=== PATIENT | female | born 1960 | race Caucasian/White ===

== ENCOUNTER → 2025-03-04 11:30 | Outpatient (BNV) | payer MEDICARE, MEDICAID, SELFPAY | PROVIDERS: Visit Provider Psychiatry & Neurology Psychiatry | DX: F33.2 Major depressive disorder, recurrent severe without psychotic features (principal); F41.1 Generalized anxiety disorder; R41.840 Attention and concentration deficit | CPT/HCPCS: 90792 ==

== ENCOUNTER 2025-03-08 07:37 | Outpatient (REF) | payer MEDICARE, MEDICAID, SELFPAY ==
--- NOTE | 2025-03-08 07:46 | ECG_ITS ---
Test Reason : R/O QTC PROLONGATION Blood Pressure : */* mmHG Vent. Rate : 82 BPM Atrial Rate : 82 BPM P-R Int : 166 ms QRS Dur : 84 ms QT Int : 422 ms P-R-T Axes : 38 24 38 degrees QTcB Int : 493 ms Normal sinus rhythm Prolonged QT Abnormal ECG No previous ECGs available Referred By: Mary Jo Madden Electronically Signed By: PAT BAIRD MD
[2025-03-08 08:10] LABS: MANUAL DIFF FLAG NO
[2025-03-08 08:16] LABS: Hematocrit 48.5 % (37.0-47.0); Hemoglobin 16.5 g/dl (12.0-16.0); Imm Gran Abs Auto 0.02 X10*3/uL (0.00-0.03); Imm Gran Pct Auto 0.4 % (0.0-0.4); Lymphocytes Absolute Auto 1.4 X10*3/uL (1.2-4.9); Mean Corpuscular HGB Conc 34.0 g/dl (31.0-35.0); Mean Corpuscular Hemoglobin 29.9 pg (27.0-33.0); Mean Corpuscular Volume 88.0 fL (80.0-98.0); NRBC Abs Auto 0.000 X10*3/uL (0.0-0.012); NRBC Pct Auto 0.0 /100WBC (0.0-0.2); Platelet Count 219 X10*3/uL (160-400); Red Blood Count 5.51 X10*6/uL (4.20-5.50); White Blood Count 5.4 X10*3/uL (4.8-10.8)
[2025-03-08 08:31] LABS: Hemoglobin A1C 217.2388 umol/L; Total Hemoglobin (HGBA1C) 4287.5473 umol/L
[2025-03-08 08:45] LABS: Parathyroid Hormone Intact 109.1 pg/mL (8.7-77.1)
[2025-03-08 08:53] LABS: Alanine Aminotransferase 85 U/L (0-31); Albumin Level 4.3 g/dL (3.5-5.0); Alkaline Phosphatase 61 U/L (39-117); Anion Gap 12 (12-20); Aspartate Amino Transferase 64 U/L (5-31); Blood Urea Nitrogen 17 mg/dL (9-16); Calcium 9.3 mg/dL (8.4-10.2); Carbon Dioxide 30 mmol/L (22-29); Chloride 103 mmol/L (96-108); Cholesterol 127 mg/dL (<200); Estimated Glomerular Filt Rate 55; HDL Cholesterol 41 mg/dL (>40); Iron 83 mcg/dL (30-160); Magnesium 2.1 mg/dL (1.6-2.6); Percent Iron Saturation 30 % (15-50); Potassium 3.1 mmol/L (3.3-5.1); Sodium 142 mmol/L (135-145); Total Iron Binding Capacity 280 mcg/dL (228-428); Total Protein 7.2 g/dL (6.5-8.0); Triglycerides 109 mg/dL (<150); Unsaturated Iron Binding 197 ug/dL
[2025-03-08 09:08] LABS: Free T4 (Free Thyroxine) 0.99 ng/dL (0.71-1.85); Thyroid Stimulating Hormone 1.96 uIU/mL (0.32-4.0)
[2025-03-08 09:23] LABS: Folate 7.9 ng/mL (> or = 4.0); Vitamin B12 471 pg/mL (200-900)
== END 2025-03-08 07:38 | disposition home or self-care (01) ==
LOC: HO.LAB 07:37
PROVIDERS: Visit Provider Psychiatry & Neurology Psychiatry
DX: F33.2 Major depressive disorder, recurrent severe without psychotic features (principal); F41.1 Generalized anxiety disorder
CPT/HCPCS: 36415; 80053; 80061; 82306; 82607; 82746; 83036; 83090; 83540; 83735; 83970; 84100; 84425; 84439; 84443; 85025; 85652; 86140; 93005

== ENCOUNTER → 2025-03-08 07:46 | Outpatient (BNV) | payer MEDICARE, MEDICAID, SELFPAY | PROVIDERS: Visit Provider Internal Medicine Cardiovascular Disease | DX: R94.31 Abnormal electrocardiogram [ECG] [EKG] (principal); Z13.6 Encounter for screening for cardiovascular disorders | CPT/HCPCS: 93010 ==

== ENCOUNTER 2025-03-18 12:00 | Outpatient (RCR) | payer MEDICARE, MEDICAID, SELFPAY ==
[2025-03-04 10:57] VITALS: BMI 37.7
--- NOTE | 2025-03-04 11:44 | PC.ADMIT ---
Patient is a 64 year old female who was referred to [facility] by her therapist d/t sxs of depression with passive SI and anxiety. 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 Patient stated she recently had a CT scan which showed something on her pancreas. She stated she has a f/u MRI in April. She reports she sees an oncologist twice a year for f/u appointments. Patient reports she retired from work 5 years ago d/t memory issues. Patient reports she was hospitalized 5 years ago and received ECT treatments. She reports she was not able to go back to work d/t memory issues. Patient is alert and oriented x4. She presents with depressed mood and affect. She reports passive SI, denied any plan or intent to harm herself. She reports she could never do that to her family. Patient reports she feels lonely and is struggling with her marriage. She reports she has been together with her for thirty years. She denied any substance issues.
[2025-03-04 11:45] VITALS: BP 120/82; PULSE 96; TEMP 36.7
--- NOTE | 2025-03-04 18:07 | HO.PS.ADMBH ---
HPI Date of Service: 03/04/25 Chief Complaint: MDD Sources of Information: patient interviewed, chart reviewed and crisis/core team assessment reviewed HPI Narrative: This is a 64-year-old female, breast cancer survivor with history of anxiety, depression, NIDDM, HTN, who was referred to [facility] by her outpatient therapist. ?Terribly depressed, miserable and sad. This has been going back for at least 5 years, but more recently in the last 3 or 4 months it has been getting worse?. Reports she had been psychiatrically hospitalized at the time and received ECT. She reports experiencing significant cognitive impairment due to treatments, which she feels she has not fully recovered from and in fact feels she has not returned to her baseline cognition (prior to ECT). Recent precipitant is losing access to a peer support who had been helping her for the previous 6 months, keeping her company in helping her with chores, running errands and other daily tasks. ?I had somebody helping me because I have a hard time starting tasks and completing tasks... She was like a peer support however the [employer] insurance stopped covering her and she had to return to school . She lives at home with her whom she notes is a very busy and active person and who is not always sympathetic to her struggles. She has 3 adult children youngest of which has been living with them for awhile following a break-up. 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 She has outpatient therapist and psychiatrist from she has been working with for the past 3 years into have been good supports. Aside from mental health struggles, she also has chronic lymphedema of her left upper extremity which she feels limits her on a daily basis. Denies any SI, HI, AH, VH. No history suggestive of hypomania/donnell or psychosis. No substance use issues. Main stressors related to marriage dysfunction drives me anything crazy he is a recovered alcoholic, works all the time, is a remodeled [employer], wood worker... He just expects more from me , also complains of occupational/daily functional impairment and executive dysfunction. Past Psychiatric History: IPLOC: none PHP x1: 5 yrs ago Denies respite, detox or rehab admissions SA: denies SIB: denies Aggression/ASB: none Legal hx: denies Therapist: Samira Sutherland at [facility] Psychiatrist: Dr. Valdez PCP: Faby Williamson Previous medication trials: Previous ECT (during IPLOC) - AE: persistent cognitive impairment CURRENT MEDICATIONS: Pristiq 50 mg daily Propranolol 20 mg t.i.d. Gabapentin 400/400/600 mg Mirtazapine 45 mg daily at bedtime Lorazepam 1 mg BID (upon waking and 9am) Trazodone 150 mg daily at bedtime Hydrochlorothiazide 25 mg daily amlodipine 5 mg daily Potassium chloride 20 mEq daily Jardiance 25 mg daily Rosuvastatin 5 mg daily Trulicity 3 mg subcu Q weekly Vitamin D3 [facility] Medical History (Updated 03/06/25 @ 18:50 by Mary Jo Madden MD) Arthritis Acquired lymphedema Breast CA Type II diabetes mellitus Hyperlipidemia HTN (hypertension) Narrative: Right-hand dominant NIDDM Hypertension Hyperlipidemia Chronic lymphoedema of LUE (secondary to lymphadenectomy related to breast cancer treatment) SH: Lumpectomy (breast) lymphadenectomy (axilla/LUE) Seizures: denies (except ect) Concussion/TBI: denies - postmenopausal Height: 5'2 Weight: 206 lbs ALL: Compazine, codeine, sulfa drugs Surgical History (Updated 03/04/25 @ 10:55 by Karina Coombs RN) H/O left mastectomy History of removal of both ovaries Narrative: uterus intact Family History: Reports problematic drinkin , alcohol use in father (but functioned, no major issues) sister with depression and anxiety, Denies family suicides Social History: x 34 yrs, has 3 adult children (29 yo twin sons, 27 yo son) Lives at home with and 27-year-old son is currently staying with them, whenever 29-year-old sons is in medical school in [place] She is close with her 87-year-old mother and her 2 sisters and brother, she is the oldest of 4 siblings Graduated high school in 1979 Graduated college from [employer] in 1983 Was a an art major, 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 Substance History: Denies Trauma History: cites marital issues ( is a recovered alcoholic), but denies any p/s/e abuse or neglect Diagnostics Vital Signs (24Hr): Vital Signs - 24 hr 03/04/25 11:45 Temperature 98.0 F Pulse Rate 96 Blood Pressure 120/82 BMI result Body Mass Index 37.7 Meds/Allergies Meds Home Medications ?Medication ?Instructions ?Recorded ?Confirmed ?Type amlodipine 5 mg tablet 5 mg PO DAILY 03/04/25 03/04/25 History cholecalciferol (vitamin D3) 50 50 mcg PO DAILY 03/04/25 03/04/25 History mcg (2,000 unit) tablet desvenlafaxine succinate 50 mg 50 mg PO DAILY 03/04/25 03/04/25 History tablet,extended release 24 hr dulaglutide 3 mg/0.5 mL 3 mg subcut QWEEK 03/04/25 03/04/25 History subcutaneous pen injector (Trulicity) empagliflozin 25 mg tablet 25 mg PO DAILY 03/04/25 03/04/25 History (Jardiance) gabapentin 400 mg capsule 400 mg PO BID 03/04/25 03/04/25 History gabapentin 600 mg tablet 600 mg PO BEDTIME 03/04/25 03/04/25 History hydrochlorothiazide 25 mg tablet 25 mg PO DAILY 03/04/25 03/04/25 History lorazepam 0.5 mg tablet 0.5 mg PO BEDTIME 03/04/25 03/04/25 History lorazepam 1 mg tablet See Rx Instructions .Route .COMPLEX 03/04/25 03/04/25 History mirtazapine 45 mg tablet 45 mg PO BEDTIME 03/04/25 03/04/25 History potassium chloride 20 mEq 20 meq PO DAILY 03/04/25 03/04/25 History tablet,extended release(part/cryst) propranolol 20 mg tablet 20 mg PO TID 03/04/25 03/04/25 History pyridoxine (vitamin B6) 100 mg 100 mg PO DAILY 03/04/25 03/04/25 History tablet rosuvastatin 5 mg tablet 5 mg PO DAILY 03/04/25 03/04/25 History trazodone 150 mg tablet 150 mg PO BEDTIME 03/04/25 03/04/25 History Allergies Allergies Allergy/AdvReac Type Severity Reaction Status Date / Time codeine Allergy Unknown Verified 03/04/25 10:56 prochlorperazine (From Allergy EPS. Verified 03/04/25 10:56 Compazine) Sulfa (Sulfonamide Allergy Unknown Verified 03/04/25 10:56 Antibiotics) Mental Status Exam Mental Status Exam Narrative: Alert, oriented, in no acute distress. Calm, cooperative, engaged. No psychomotor agitation or neurovegetative retardation. Eye contact maintained. Mood depressed, affect anxious, dysphoric, moments of tearfulness. Speech normal. Thought process scattered, linear, coherent. Thought content related to stressors, executive dysfunction, feeling overwhelmed, some transient helplessness and hopelessness, denies SI, intention or plan. Denies any aggressive ideation. No paranoia or delusional content elicited. No evidence of psychosis. Insight and judgment fair but adequate. Assessment & Plan Assessment & Plan (1) MDD (major depressive disorder), recurrent severe, without psychosis: Status: Acute Code(s): F33.2 - Major depressive disorder, recurrent severe without psychotic features (2) DEX (generalized anxiety disorder): Status: Acute Code(s): F41.1 - Generalized anxiety disorder (3) Cognitive attention deficit: Status: Acute Code(s): R41.840 - Attention and concentration deficit Assessment and Plan: Developmental hx suggestive of possible ADD struggles and likely exacerbated by ECT. Unclear if there have been other contributions to further cognitive declines (menopause, medical hx/CA treatment, etc) May placed Sade by smashing claudia Plan Admit to [facility] VS reviewed: afebrile, BP 120/80;?96 bpm continue regular medications for now Routine lab work as indicated EKG, routine for baseline QTc for medication considerations, lab slip given will check Mtb. a1c UDS as indicated [facility] reviewed Obtain ASRS, Mo[facility] next week Continue to monitor as per protocol Patient educated on: diagnosis and medication risk/benefits Informed Consent: understands Reason for continued partial hosp. stay Substantial Risk for: inability to function and med/psych decompensation Certification I certify that partial hospital treatment is medically necessary due to the symptoms and problems resulting from the patient's mental illness and the failure to treat the patient at the partial hospital level of care would likely result in the patient requiring inpatient psychiatric care which could not be prevented at a less intensive level of care. Time Spent With Patient Time: Total time managing care of this patient today __90__ minutes.
--- NOTE | 2025-03-08 13:42 | PC.NURSE ---
Reviewed with Dr. Madden lab and EKG results including K+3.1, Co2 30, Creat 1.02, egfr 55, FBS 149, AST 64, ALT 85, CRP 0.56, A1C 6.8, RBC 5.51, HGB 16.5, HCT 48.5, MPV 9.1, EOS PCT auto 5.4. EKG NSR, Prolonged QT, QT 422, QTC 493.
--- NOTE | 2025-03-10 12:54 | P.PNPSP_ITS ---
Subjective Subjective Date of Service: 03/10/25 Reason For Visit: MDD Mental Status Exam Mental Status Exam Narrative: Alert, oriented, in no acute distress. Calm, cooperative. Mood anxious, affect anxious. Speech normal. Thought process linear, coherent, more goal-directed. Thought content related to stressors, namely cognitive complaints, some future- orientation, denies any helplessness, hopelessness or SI.? No aggressive ideation or HI. No paranoia or delusional content elicited. No evidence of psychosis. Insight and judgment fair-good. Diagnostics Vital Signs (24Hr): BMI result Body Mass Index 37.7 Assessment & Plan Assessment & Plan (1) MDD (major depressive disorder), recurrent severe, without psychosis: Status: Acute Code(s): F33.2 - Major depressive disorder, recurrent severe without psychotic features (2) DEX (generalized anxiety disorder): Status: Acute Code(s): F41.1 - Generalized anxiety disorder (3) Cognitive attention deficit: Status: Acute Code(s): R41.840 - Attention and concentration deficit Assessment and Plan: Developmental hx suggestive of possible ADD struggles and likely exacerbated by ECT. Unclear if there have been other contributions to further cognitive declines (menopause, medical hx/CA treatment, etc) May placed Sade by smashing pumpkins Plan continue PHP start modafinil 50-100 mg qam continue desvenlafaxine 50 mg qd continue regular medications for now Routine lab work as indicated EKG, routine for baseline QTc for medication considerations, lab slip given will check Mtb. a1c UDS as indicated VS reviewed: afebrile, BP 120/80;?96 bpm Continue to monitor as per protocol Patient educated on: diagnosis and medication risk/benefits Informed Consent: understands Certification I certify that partial hospital treatment is medically necessary due to the symptoms and problems resulting from the patient's mental illness and the failure to treat the patient at the partial hospital level of care would likely result in the patient requiring inpatient psychiatric care which could not be prevented at a less intensive level of care. Total time managing care of this patient today ____ minutes. Discharge Plan Discharge Attending provider: Mary Jo Madden Medications: New modafinil 100 mg tablet 100 mg PO QAM Qty: 30 0RF cholecalciferol (vitamin D3) [Vitamin D3] 125 mcg (5,000 unit) tablet 125 mcg PO DAILY Qty: 30 0RF mirtazapine 30 mg tablet 30 mg PO BEDTIME Qty: 30 0RF trazodone 50 mg tablet 50 - 100 mg PO BEDTIME PRN (Reason: sleep) Qty: 60 0RF guanfacine 1 mg tablet extended release 24 hr 1 mg PO QAM Qty: 30 0RF Continued gabapentin 600 mg tablet 600 mg PO BEDTIME amlodipine 5 mg tablet 5 mg PO DAILY desvenlafaxine succinate 50 mg tablet extended release 24 hr 50 mg PO DAILY lorazepam 0.5 mg tablet 0.5 mg PO BEDTIME hydrochlorothiazide 25 mg tablet 25 mg PO DAILY lorazepam 1 mg tablet See Rx Instructions .ROUTE .COMPLEX Rx Instructions: TAKE 1 TABLET BY MOUTH UPON AWAKENING AND THEN TAKE 1 TABLET BY MOUTH AT 9 A.M. THIS IS A DOSE INCREASE OF 09/14/24, TOTAL DAILY DOSE IS 2. Jardiance 25 mg tablet 25 mg PO DAILY potassium chloride 20 mEq tablet,ER particles/crystals 20 meq PO DAILY rosuvastatin 5 mg tablet 5 mg PO DAILY cholecalciferol (vitamin D3) 50 mcg (2,000 unit) tablet 50 mcg PO DAILY Trulicity 3 mg/0.5 mL pen injector 3 mg SUBCUT QWEEK Rx Instructions: Weekly propranolol 20 mg tablet 20 mg PO TID Discontinued trazodone 150 mg tablet 150 mg PO BEDTIME mirtazapine 45 mg tablet 45 mg PO BEDTIME No Action gabapentin 400 mg capsule 400 mg PO BID Rx Instructions: TAKE ONE CAPSULE BY MOUTH TWICE A DAY IN THE MORNING AND AFTERNOON. pyridoxine (vitamin B6) 100 mg tablet 100 mg PO DAILY Stand Alone Forms: Patient Portal Discharge page Print Language: Sami
--- NOTE | 2025-03-10 14:22 | HO.PHP ---
This case was opened and reviewed on treatment teams.
--- NOTE | 2025-03-18 14:02 | HO.PHPPROGNO ---
Subjective Subjective Date of Service: 03/18/25 Reason For Visit: MDD Interim History: Patient seen for follow-up, anticipating discharge at the end of program today.? Reports no acute issues or concerns. Medication compliant, medications well-tolerated. Denies any adverse effects.? Mood is stable.? Denies any hopelessness or SI. Denies thoughts of harming self or others at this time. Denies any aggressive ideation or HI. Denies any paranoia or AH or VH. Sleep, appetite, energy stable. Mental Status Exam Mental Status Exam Narrative: Alert, oriented, in no acute distress. Calm, cooperative. Mood anxious, affect anxious. Speech normal. Thought process linear, coherent, more goal-directed. Thought content related to stressors, namely cognitive complaints, some future-orientation, denies any helplessness, hopelessness or SI.? No aggressive ideation or HI. No paranoia or delusional content elicited. No evidence of psychosis. Insight and judgment fair-good. Diagnostics Vital Signs (24Hr): BMI result Body Mass Index 37.7 Assessment & Plan Assessment & Plan (1) MDD (major depressive disorder), recurrent severe, without psychosis: Status: Acute Code(s): F33.2 - Major depressive disorder, recurrent severe without psychotic features (2) DEX (generalized anxiety disorder): Status: Acute Code(s): F41.1 - Generalized anxiety disorder (3) Cognitive attention deficit: Status: Acute Code(s): R41.840 - Attention and concentration deficit Assessment and Plan: Developmental hx suggestive of possible ADD struggles and likely exacerbated by ECT. Unclear if there have been other contributions to further cognitive declines (menopause, medical hx/CA treatment, etc) May placed Sade by smashing pumpkins Plan [facility]charge from [facility] Continue regular medications Refills sent to pharmacy Will defer further medication management to outpatient provider *Safety plan reviewed *Discharge diagnoses, treatment course, discharge plan have been reviewed with patient (including medication regime, medication management, potential side effects) as well as treatment rationale were also revisited *Discharge paperwork signed and given to patient, copy sent for scanning to chart Patient educated on: diagnosis and medication risk/benefits Informed Consent: understands Reason for contiued partial hosp. stay Substantial Risk for: stable for discharge Certification I certify that partial hospital treatment is medically necessary due to the symptoms and problems resulting from the patient's mental illness and the failure to treat the patient at the partial hospital level of care would likely result in the patient requiring inpatient psychiatric care which could not be prevented at a less intensive level of care. Total time managing care of this patient today __30__ minutes. Discharge Plan Discharge Attending provider: Mary Jo Madden Medications: New modafinil 100 mg tablet 100 mg PO QAM Qty: 30 0RF cholecalciferol (vitamin D3) [Vitamin D3] 125 mcg (5,000 unit) tablet 125 mcg PO DAILY Qty: 30 0RF mirtazapine 30 mg tablet 30 mg PO BEDTIME Qty: 30 0RF trazodone 50 mg tablet 50 - 100 mg PO BEDTIME PRN (Reason: sleep) Qty: 60 0RF guanfacine 1 mg tablet extended release 24 hr 1 mg PO QAM Qty: 30 0RF Continued gabapentin 600 mg tablet 600 mg PO BEDTIME amlodipine 5 mg tablet 5 mg PO DAILY desvenlafaxine succinate 50 mg tablet extended release 24 hr 50 mg PO DAILY lorazepam 0.5 mg tablet 0.5 mg PO BEDTIME hydrochlorothiazide 25 mg tablet 25 mg PO DAILY lorazepam 1 mg tablet See Rx Instructions .ROUTE .COMPLEX Rx Instructions: TAKE 1 TABLET BY MOUTH UPON AWAKENING AND THEN TAKE 1 TABLET BY MOUTH AT 9 A.M. THIS IS A DOSE INCREASE OF 09/14/24, TOTAL DAILY DOSE IS 2. Jardiance 25 mg tablet 25 mg PO DAILY potassium chloride 20 mEq tablet,ER particles/crystals 20 meq PO DAILY rosuvastatin 5 mg tablet 5 mg PO DAILY cholecalciferol (vitamin D3) 50 mcg (2,000 unit) tablet 50 mcg PO DAILY Trulicity 3 mg/0.5 mL pen injector 3 mg SUBCUT QWEEK Rx Instructions: Weekly propranolol 20 mg tablet 20 mg PO TID Discontinued trazodone 150 mg tablet 150 mg PO BEDTIME mirtazapine 45 mg tablet 45 mg PO BEDTIME No Action gabapentin 400 mg capsule 400 mg PO BID Rx Instructions: TAKE ONE CAPSULE BY MOUTH TWICE A DAY IN THE MORNING AND AFTERNOON. pyridoxine (vitamin B6) 100 mg tablet 100 mg PO DAILY Stand Alone Forms: Patient Portal Discharge page Print Language: Salvadorean
== END 2025-03-18 23:59 | disposition home or self-care (01) ==
LOC: HO.PHPA 12:00
PROVIDERS: Visit Provider Psychiatry & Neurology Psychiatry
DX: F33.2 Major depressive disorder, recurrent severe without psychotic features (principal); F41.1 Generalized anxiety disorder; R41.840 Attention and concentration deficit; Z79.899 Other long term (current) drug therapy
CPT/HCPCS: 90791; 90853

== ENCOUNTER → 2025-04-07 12:39 | Outpatient (REF) | payer MEDICARE, MEDICAID, SELFPAY ==
--- NOTE | 2025-04-07 | ECG_ITS ---
Test Reason : QT PROLONGATION Blood Pressure : */* mmHG Vent. Rate : 77 BPM Atrial Rate : 77 BPM P-R Int : 170 ms QRS Dur : 84 ms QT Int : 420 ms P-R-T Axes : 34 12 38 degrees QTcB Int : 475 ms Normal sinus rhythm Normal ECG When compared with ECG of 08-Mar-2025 07:54, No significant change was found Referred By: Mary Jo Madden Electronically Signed By: PAT BAIRD MD
--- OUTSIDE RECORDS SUMMARY | 2025-04-07 12:53 | XMS_ITS | Encounter Summary ---
Author Organization [facility] Address [address] [place] [address] [place] [id number] Phone Care Team Providers Care Electrical Research Engineer Name Role Phone Jenaro Watson MD Unavailable [phone] Ismael Sommers MD Unavailable Chandler Gutiérrez MD Unavailable [place]Coco tam DO Unavailable Leandro Cisneros MD Unavailable [phone] Evelyn Mims MD Unavailable [phone] Geni Zimmer MD Unavailable Katelynn Henderson AD TAKER Unavailable [phone] Anson Mckeon MD Primary Care Provider [phone] Evelyn Mims MD Unavailable Katelynn Henderson AD TAKER Primary Care Provider Katelynn Henderson AD TAKER Primary Care Provider Evelyn Mims MD Unavailable Encounter Details Date Type Department Care Team (Late st Contact Info) Description 04/25/2020 Telephone [facility] [address] [place], [place] [id number] Leandro Cisneros MD [address] [place] [address], [address] [place] [address] Social History Tobacco Use Types Packs/Day Years Used Date Smoking Tobacco: Never Smokeless Tobacco: Never Alcohol Use Standard Drinks/Week Comments Yes 0 (1 standard drink = 0.6 oz pur e alcohol) 3-4 drinks per month Comments No Sex and Gender Information Value Date Recorded Sex Assigned at Female 09/15/2017 9:30 AM EST Legal Sex Female 7:15 PM EST Gender Identity Female 09/15/2017 9:30 AM EST Sexual Orientation Straight 09/15/2017 9: 30 AM EST Occupation Industry Job Start Date Job End Date Working Not on file Not on file Not on file documented as of this encounter Functional Status documented as of this encounter Plan of Treatment Upcoming Encounters Date Type Department Care Team (Late st Contact Info) Description 11/03/2024 Procedure Pass [address] [address] 11/03/2024 Procedure Pass [address] [address] 04/27/2025 2:40 PM EDT Appointment [address] [address] Evelyn Mims MD [address] [place] [id number] 05/06/2025 2:15 PM EDT Appointment [address] [address] Evelyn Mims MD [address] [place] [email or web address] 05/13/2025 11:30 AM EDT Office Visit [facility] Center at [address] [address] Evelyn Mims MD [address] [place] [address] [place] [address] [email or web address] documented as of this encounter Visit Diagnoses Not on filedocumented in this encounter Additional Health Concerns Infection Onset Date Last Indicated Resolved Time CoV-Exposed Comment:Recent close contact documented in the COVID-19 PCR/PRO order 01/24/2021 01/24/2021 02/08/2021 1:23 AM E DT documented as of this encounter Care Teams Electrical Research Engineer Relationship Specialty Start Date End Date Anson Mckeon MD [address] [facility] [address] [place] [id number] [email or web address] PCP - General Family Medicine 02/28/20 04/16/21 Katelynn Henderson, AD TAKER [address] [place] [address] PCP - General Family Medicine 04/17/21 04/10/22 Katelynn Henderson, AD TAKER [address] [place] [address] PCP - General Family Medicine 04/11/22 Jenaro Watson MD [address] [place] [address] [email or web address] Historical LMR Provider 06/28/17 09/15/21 Ismael Sommers MD [address] [address] [email or web address] Historical LMR Provider 06/28/17 09/15/21 Chandler Gutiérrez MD [address] [address] Historical LMR Provider 06/28/17 2 Coco Pittman DO 30 [place] [address] Historical LMR Provider 06/28/17 2 Leandor Cisneros MD 22 [facility], [address] [place] [address] Historical LMR Provider 06/28/17 Evelyn Mims MD [address] [place] [address] Historical LMR Provider 06/28/17 10/17/20 Geni Zimmer MD [address] [place] [address] Historical LMR Provider 06/28/17 Katelynn Henderson NP [address] [place] [address] Family Medicine 04/12/19 Evelyn Mims MD 30 [place] [address] [email or web address] Primary Oncologist Medical Oncology 10/18/20 04/23/22 Evelyn Mims MD 30 [place] [address] Primary Oncologist Medical Oncology 10/18/20 documented as of this encounter Additional Source Comments The information contained in this document represents components of the legal health record. It is not the complete legal health record.[facility]
== END ==
LOC: HO.CARD 12:39
PROVIDERS: PCP Nurse Practitioner Family; Visit Provider Psychiatry & Neurology Psychiatry
DX: F33.2 Major depressive disorder, recurrent severe without psychotic features (principal)
CPT/HCPCS: 93005

== ENCOUNTER → 2025-04-07 12:51 | Outpatient (BNV) | payer MEDICARE, MEDICAID, SELFPAY | PROVIDERS: Visit Provider Internal Medicine Cardiovascular Disease | DX: Z13.6 Encounter for screening for cardiovascular disorders (principal) | CPT/HCPCS: 93010 ==

== ENCOUNTER → 2025-04-15 09:15 | Outpatient (BNV) | payer MEDICARE, MEDICAID, SELFPAY | PROVIDERS: Visit Provider Psychiatry & Neurology Psychiatry | DX: F33.2 Major depressive disorder, recurrent severe without psychotic features (principal); F41.1 Generalized anxiety disorder; R41.840 Attention and concentration deficit; R41.89 Other symptoms and signs involving cognitive functions and awareness | CPT/HCPCS: 99213; 99499 ==

== ENCOUNTER 2025-04-29 09:15 | Outpatient (RCR) | payer MEDICARE, MEDICAID, SELFPAY ==
[2025-04-06 10:47] VITALS: BP 120/78; PULSE 80; TEMP 36.9; BMI 37.6
--- NOTE | 2025-04-06 11:26 | PC.ADMIT ---
Patient is a 65 year old female who was recently discharged from [facility] and is attending [facility] level of care for depression and anxiety sxs. Patient reports marital strife as a stressor along with cognitive and stamina issues that keeps her from doing things. Patient is alert and oriented x4. She is calm and cooperative. She presents with depressed mood and anxious affect. She reports passive SI, patient stated, Just thoughts but not doing anything. I get tired of being so sad and being miserable every day and not feeling better. Denied any plans or intent to harm herself. She just wants to feel better mentally. Patient was given a copy of her safety plan if needed. Medications updated with patient and [facility] medication list. Patient reports taking medications as prescribed. Patient denied any substance issues.
--- NOTE | 2025-04-07 15:42 | HO.PHP ---
Client's case has been opened and reviewed in team
[2025-04-08 09:07] VITALS: BP 126/80; PULSE 88
--- NOTE | 2025-04-08 14:01 | HO.PS.ADMBH ---
HPI Date of Service: 04/07/25 Chief Complaint: MDD Sources of Information: patient interviewed, chart reviewed and crisis/core team assessment reviewed HPI Narrative: This is a 65-year-old female, breast cancer survivor with history of anxiety, depression, NIDDM, HTN, who just completed PHP and is stepping down to [facility]. Reports chronic depression for at least 5 years, but more recently in the last 4 months it has been getting worse. She reports experiencing significant cognitive impairment due to treatments, which she feels she has not fully recovered from and in fact feels she has not returned to her baseline cognition (prior to ECT). Recent precipitant is losing access to a peer support who had been helping her for the previous 6 months, keeping her company in helping her with chores, running errands and other daily tasks. ?I had somebody helping me because I have a hard time starting tasks and completing tasks... She was like a peer support however the my insurance stopped covering her and she had to return to school . She lives at home with her whom she notes is a very busy and active person and who is not always sympathetic to her struggles. She has 3 adult children youngest of which has been living with them for awhile following a break-up. He is a epstein and [place] and there is a ton of work to do maintaining the home and farm. She has outpatient therapist and psychiatrist from she has been working with for the past 3 years into have been good supports. Aside from mental health struggles, she also has chronic lymphedema of her left upper extremity which she feels limits her on a daily basis. Denies any SI, HI, AH, VH. No history suggestive of hypomania/donnell or psychosis. No substance use issues. Main stressors related to marriage dysfunction drives me anything crazy he is a recovered alcoholic, works all the time, is a remodeled her, wood worker... He just expects more from me , also complains of occupational/daily functional impairment and executive dysfunction. Past Psychiatric History: IPLOC: Reports she had been psychiatrically hospitalized at the time and received ECT. PHP x2: 02/2025 to [facility] and 5 yrs ago Denies respite, detox or rehab admissions SA: denies SIB: denies Aggression/ASB: none Legal hx: denies Therapist: Samira Sutherland at [facility] Psychiatrist: Dr. Valdez PCP: Faby Williamson Previous medication trials: Previous ECT (during IPLOC) - AE: persistent cognitive impairment CURRENT MEDICATIONS: Pristiq 50 mg daily Propranolol 20 mg t.i.d. Gabapentin 400/400/600 mg Mirtazapine 30 mg daily at bedtime Lorazepam 1 mg BID (upon waking and 9am) Trazodone 50-100 mg daily at bedtime Hydrochlorothiazide 25 mg daily amlodipine 5 mg daily Potassium chloride 20 mEq daily Jardiance 25 mg daily Rosuvastatin 5 mg daily Trulicity 3 mg subcu Q weekly Vitamin D3 [facility] Medical History (Updated 04/11/25 @ 03:34 by Mary Jo Madden MD) Statin-induced myositis Sleep apnea Pancreatic cyst Arthritis Acquired lymphedema Breast CA Type II diabetes mellitus Hyperlipidemia HTN (hypertension) Narrative: Right-hand dominant NIDDM Hypertension Hyperlipidemia Chronic lymphoedema of LUE (secondary to lymphadenectomy related to breast cancer treatment) SH: Lumpectomy (breast) lymphadenectomy (axilla/LUE) Seizures: denies (except ect) Concussion/TBI: denies - postmenopausal Height: 5'2 Weight: 206 lbs ALL: Compazine, codeine, sulfa drugs Surgical History (Updated 03/04/25 @ 10:55 by Karina Coombs RN) H/O left mastectomy History of removal of both ovaries Narrative: uterus intact Family History: Reports problematic drinkin , alcohol use in father (but functioned, no major issues) sister with depression and anxiety, Denies family suicides Social History: x 34 yrs, has 3 adult children (29 yo twin sons, 27 yo son) Lives at home with and 27-year-old son is currently staying with them, whenever 29-year-old sons is in medical school in [place] She is close with her 87-year-old mother and her 2 sisters and brother, she is the oldest of 4 siblings Graduated high school in 1979 Graduated college from [employer] in 1983 Was a an art major, 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 Substance History: Denies Trauma History: cites marital issues ( is a recovered alcoholic), but denies any p/s/e abuse or neglect Diagnostics Vital Signs (24Hr): BMI result Body Mass Index 37.6 Meds/Allergies Meds Home Medications ?Medication ?Instructions ?Recorded ?Confirmed ?Type amlodipine 5 mg tablet 5 mg PO DAILY 03/04/25 04/06/25 History desvenlafaxine succinate 50 mg 50 mg PO DAILY 03/04/25 04/06/25 History tablet,extended release 24 hr dulaglutide 3 mg/0.5 mL 3 mg subcut QWEEK 03/04/25 04/06/25 History subcutaneous pen injector (Trulicity) empagliflozin 25 mg tablet 25 mg PO DAILY 03/04/25 04/06/25 History (Jardiance) gabapentin 400 mg capsule 400 mg PO BID 03/04/25 04/06/25 History gabapentin 600 mg tablet 600 mg PO BEDTIME 03/04/25 04/06/25 History hydrochlorothiazide 25 mg tablet 25 mg PO DAILY 03/04/25 04/06/25 History lorazepam 0.5 mg tablet 0.5 mg PO BEDTIME 03/04/25 04/06/25 History potassium chloride 20 mEq 20 meq PO DAILY 03/04/25 04/06/25 History tablet,extended release(part/cryst) propranolol 20 mg tablet 20 mg PO TID 03/04/25 04/06/25 History pyridoxine (vitamin B6) 100 mg 100 mg PO DAILY 03/04/25 04/06/25 History tablet rosuvastatin 5 mg tablet 5 mg PO DAILY 03/04/25 04/06/25 History Allergies Allergies Allergy/AdvReac Type Severity Reaction Status Date / Time brexpiprazole (From Rexulti) Allergy Diarrhea, Verified 03/10/25 13:38 fatigue codeine Allergy Unknown Verified 03/04/25 10:56 metformin Allergy Low Verified 03/10/25 13:38 critically, increased anxiety. prochlorperazine (From Allergy EPS. Verified 03/04/25 10:56 Compazine) Sulfa (Sulfonamide Allergy Unknown Verified 03/04/25 10:56 Antibiotics) Mental Status Exam Mental Status Exam Narrative: Alert, oriented, in no acute distress. Calm, cooperative, engaged. No psychomotor agitation or neurovegetative retardation. Eye contact maintained. Mood depressed, affect anxious, dysphoric, moments of tearfulness. Speech normal. Thought process scattered, linear, coherent. Thought content related to stressors, executive dysfunction, feeling overwhelmed, some transient helplessness and hopelessness, denies SI, intention or plan. Denies any aggressive ideation. No paranoia or delusional content elicited. No evidence of psychosis. Insight and judgment fair but adequate. Assessment & Plan Assessment & Plan (1) MDD (major depressive disorder), recurrent severe, without psychosis: Status: Acute Code(s): F33.2 - Major depressive disorder, recurrent severe without psychotic features (2) DEX (generalized anxiety disorder): Status: Acute Code(s): F41.1 - Generalized anxiety disorder (3) Cognitive attention deficit: Status: Acute Code(s): R41.840 - Attention and concentration deficit Assessment and Plan: Developmental hx suggestive of possible ADD struggles and likely exacerbated by ECT. Unclear if there have been other contributions to further cognitive declines (menopause, medical hx/CA treatment, etc) May placed Sade by smashing claudia (4) Cognitive impairment: Status: Acute Code(s): R41.89 - Other symptoms and signs involving cognitive functions and awareness Plan Admit to IOP VS reviewed: afebrile, BP ;? bpm insurance did not authorize modafinil, will start MPH 2.5-5 mg qam continue regular medications for now Routine lab work as indicated EKG, routine for baseline QTc for medication considerations as indicated UDS as indicated MassPat reviewed Continue to monitor as per protocol I certify that the patient needs IOP Services for a minimum of 9 hours per week of therapeutic services. I certify the patient is experiencing symptoms of such intensity that they are unable to be safely treated in a less intensive setting and would otherwise require?admission to a more intensive level of care. Patient educated on: diagnosis and medication risk/benefits Informed Consent: understands Reason for continued partial hosp. stay Substantial Risk for: inability to function and med/psych decompensation Certification I certify that the patient needs IOP Services for a minimum of 9 hours per week of therapeutic services. I certify the patient is experiencing symptoms of such intensity that they are unable to be safely treated in a less intensive setting and would otherwise require?admission to a more intensive level of care. Time Spent With Patient Time: Total time managing care of this patient today _60___ minutes.
[2025-04-13 11:37] VITALS: BP 120/84; PULSE 80
--- NOTE | 2025-04-18 07:15 | P.EN_ITS ---
Event Note Date of Service: 04/15/25 Event Note: Returned call to patient who is having debilitating anxiety, I dont know what to do with myself... I'm losing my mind . PRN lorazepam is doing nothing . Has been emotionally falling apart and that was even before findings out her friend's Friday. Describes feeling functionally impaired. Anxiety lets up more toward evening, probably things are winding down and because there's less of her day left to plan for or anticipate. Feeling o verwhelmed, helpless, hopeless. Needing constant reassurance from staff and this medical writer. Complaints of being verbally abusive and unsupportive adds to her burden. Will start on risperidone 0.125 mg up to TID prn anxiety/agitation. Time Spent With Patient Time: Total time managing care of this patient today __20__ minutes.
--- NOTE | 2025-04-18 22:38 | HO.PHPPROGNO ---
Subjective Subjective Date of Service: 04/18/25 Reason For Visit: MDD Interim History: I feel anxious.. so horrible Patient struggling with self regulating. Has demanding and needy, requesting to be seen by provider on daily basis. Complains of crippling anxiety She took a risperidone when she woke this morning around 6am and another dose with her AM lorazepam between 8 and 9. She denies any issues with sedation when driving. It's 10:30 and feels her anxiety is getting worse. feeling at times shaky although admits she does not believes she has eaten anything substance today. She is unaware of where her blood sugars have been running because she forgets to take it. She does have a glucometer at home but says she does not use it and would need help with someone showing her. Medication Compliance: Intermittent Side effects from medications: No Attending Groups: Yes Review of Systems Acute medical concerns: No Mental Status Exam Mental Status Exam Narrative: Alert, oriented, in no acute distress. Calm, cooperative, engaged. No psychomotor agitation or neurovegetative retardation. Eye contact maintained. Mood depressed, affect anxious, dysphoric, moments of tearfulness. Speech normal. Thought process scattered, linear, coherent. Thought content related to stressors, executive dysfunction, feeling overwhelmed, some transient helplessness and hopelessness, denies SI, intention or plan. Denies any aggressive ideation. No paranoia or delusional content elicited. No evidence of psychosis. Insight and judgment fair but adequate. Diagnostics Vital Signs (24Hr): BMI result Body Mass Index 37.6 Assessment & Plan Assessment & Plan (1) MDD (major depressive disorder), recurrent severe, without psychosis: Status: Acute Code(s): F33.2 - Major depressive disorder, recurrent severe without psychotic features (2) DEX (generalized anxiety disorder): Status: Acute Code(s): F41.1 - Generalized anxiety disorder (3) Cognitive attention deficit: Status: Acute Code(s): R41.840 - Attention and concentration deficit Assessment and Plan: Developmental hx suggestive of possible ADD struggles and likely exacerbated by ECT. Unclear if there have been other contributions to further cognitive declines (menopause, medical hx/CA treatment, etc) May placed Sade by smashing pumpkins (4) Cognitive impairment: Status: Acute Code(s): R41.89 - Other symptoms and signs involving cognitive functions and awareness Plan continue IOP hold MPH 2.5-5 mg qam increase risperidone to 0.25 mg TID prn anxiety (encouraged to take more regularly) continue other regular medications will bring in her glucometer and review use tomorrow Routine lab work as indicated EKG, routine for baseline QTc for medication considerations as indicated UDS as indicated MassPat reviewed Continue to monitor I certify that the patient needs IOP Services for a minimum of 9 hours per week of therapeutic services. I certify the patient is experiencing symptoms of such intensity that they are unable to be safely treated in a less intensive setting and would otherwise require?admission to a more intensive level of care. Patient educated on: diagnosis and medication risk/benefits Informed Consent: understands Reason for contiued partial hosp. stay Substantial Risk for: inability to function and med/psych decompensation Certification I certify that the patient needs IOP Services for a minimum of 9 hours per week of therapeutic services. I certify the patient is experiencing symptoms of such intensity that they are unable to be safely treated in a less intensive setting and would otherwise require?admission to a more intensive level of care. Total time managing care of this patient today __30__ minutes. Discharge Plan Discharge Attending provider: Mary Jo Madden Medications: New thiamine HCl (vitamin B1) 100 mg capsule 100 mg PO DAILY Qty: 30 2RF pyridoxine (vitamin B6) [Vitamin B-6] 100 mg tablet 100 mg PO DAILY Qty: 30 0RF memantine [Namenda] 5 mg tablet 5 mg PO QPM 7 Days Qty: 14 0RF Continued gabapentin 600 mg tablet 600 mg PO BEDTIME gabapentin 400 mg capsule 400 mg PO BID Rx Instructions: TAKE ONE CAPSULE BY MOUTH TWICE A DAY IN THE MORNING AND AFTERNOON. amlodipine 5 mg tablet 5 mg PO DAILY desvenlafaxine succinate 50 mg tablet extended release 24 hr 50 mg PO DAILY lorazepam 0.5 mg tablet 0.5 mg PO BEDTIME hydrochlorothiazide 25 mg tablet 25 mg PO DAILY Jardiance 25 mg tablet 25 mg PO DAILY potassium chloride 20 mEq tablet,ER particles/crystals 20 meq PO DAILY pyridoxine (vitamin B6) 100 mg tablet 100 mg PO DAILY rosuvastatin 5 mg tablet 5 mg PO DAILY Trulicity 3 mg/0.5 mL pen injector 3 mg SUBCUT QWEEK Rx Instructions: Weekly propranolol 20 mg tablet 20 mg PO TID modafinil 100 mg tablet 100 mg PO QAM Qty: 30 0RF guanfacine 1 mg tablet extended release 24 hr 1 mg PO QAM Qty: 30 0RF mirtazapine 30 mg tablet 30 mg PO BEDTIME Qty: 30 0RF lorazepam 1 mg tablet See Rx Instructions .ROUTE .COMPLEX Qty: 60 0RF Rx Instructions: TAKE 1 TABLET BY MOUTH UPON AWAKENING AND THEN TAKE 1 TABLET BY MOUTH AT 9 A.M. THIS IS A DOSE INCREASE OF 09/14/24, TOTAL DAILY DOSE IS 2. cholecalciferol (vitamin D3) [Vitamin D3] 125 mcg (5,000 unit) tablet 125 mcg PO DAILY Qty: 30 0RF trazodone 50 mg tablet 50 - 100 mg PO BEDTIME PRN (Reason: sleep) Qty: 14 0RF Discontinued cholecalciferol (vitamin D3) 50 mcg (2,000 unit) tablet 50 mcg PO DAILY Stand Alone Forms: Patient Portal Discharge page Print Language: Hungarian
--- NOTE | 2025-04-19 23:28 | P.PNPSP_ITS ---
Subjective Subjective Date of Service: 04/19/25 Reason For Visit: MDD Interim History: As agreed patient had brought in glucometer and met with staff nurse to relearn how to use it. I spoke with her last night about an episode of feeling weird yesterday around 1pm, after taking one tablet at noon. She went to get herself lunch around 2pm, but says she still had to go home and rest and felt off for the remainder of the day. Symptoms suggestive of hypoglycemia, patient ate at a small breakfast of yogurt/granola at 6am and then did not eat again until she started feeling weird 7-8 hours later. She does not check her blood sugars and did not seem to be aware of whether she has had any previous hypoglycemia, or whether she would recognize this if she did experience hypoglycemia. She is still anxious about the medication causing these effects (even though she had been doing well with 1 tablet over the weekend. She only took 1/2 tablet this morning at 6am and another half at 9am). Anxiety still high, expresses feeling frustated but agreeable to staying at 1 tablet TID with meals (and taken split as 1/2 tablet and then other 1/2 tablet after one hour) to stagger for better tolerance and control. Medication Compliance: Yes Side effects from medications: Yes (possibly medication SE vs hypoglycemia) Attending Groups: Yes Review of Systems Acute medical concerns: Yes not well controlled DM, patient advised to get in the habot of checking blood sugars in AM or when ever feeling off which she was reluctant, but ultimately agreed to do Mental Status Exam Mental Status Exam Narrative: Alert, oriented, in no acute distress. Semi-cooperative, distractible. No psychomotor agitation or neurovegetative retardation. Eye contact maintained. Mood anxious, affect anxious, . Speech normal. Thought process scattered, linear, coherent. Thought content related to stressors, executive dysfunction, feeling overwhelmed, some transient helplessness and hopelessness, denies SI, intention or plan. Denies any aggressive ideation. No paranoia or delusional content elicited. No evidence of psychosis. Insight and judgment fair but adequate. Diagnostics Vital Signs (24Hr): BMI result Body Mass Index 37.6 Assessment & Plan Assessment & Plan (1) MDD (major depressive disorder), recurrent severe, without psychosis: Status: Acute Code(s): F33.2 - Major depressive disorder, recurrent severe without psychotic features (2) DEX (generalized anxiety disorder): Status: Acute Code(s): F41.1 - Generalized anxiety disorder (3) Cognitive attention deficit: Status: Acute Code(s): R41.840 - Attention and concentration deficit Assessment and Plan: Developmental hx suggestive of possible ADD struggles and likely exacerbated by ECT. Unclear if there have been other contributions to further cognitive declines (menopause, medical hx/CA treatment, etc) May placed Sade by smashing pumpkins (4) Cognitive impairment: Status: Acute Code(s): R41.89 - Other symptoms and signs involving cognitive functions and awareness Plan continue IOP continue risperidone 0.25 mg TID (split 0.125 mg w hour in between doses) with meals continue regular medications for now discotninued: [facility] (reports no tolerating) Routine lab work as indicated EKG, routine for baseline QTc for medication considerations as indicated UDS as indicated [facility] reviewed Continue to monitor as per protocol I certify that the patient needs IOP Services for a minimum of 9 hours per week of therapeutic services. I certify the patient is experiencing symptoms of such intensity that they are unable to be safely treated in a less intensive setting and would otherwise require?admission to a more intensive level of care. Patient educated on: diagnosis and medication risk/benefits Informed Consent: understands Reason for contiued partial hosp. stay Substantial Risk for: inability to function and med/psych decompensation Certification I certify that the patient needs IOP Services for a minimum of 9 hours per week of therapeutic services. I certify the patient is experiencing symptoms of such intensity that they are unable to be safely treated in a less intensive setting and would otherwise require?admission to a more intensive level of care. Total time managing care of this patient today __30__ minutes. Discharge Plan Discharge Attending provider: Mary Jo Madden Medications: New methylphenidate HCl 5 mg tablet 5 mg PO BID Qty: 20 0RF Rx Instructions: Partial Fill upon patient request. memantine 7 mg capsule,sprinkle,ER 24hr 7 mg PO DAILY Qty: 30 0RF thiamine HCl (vitamin B1) 100 mg capsule 100 mg PO DAILY Qty: 30 2RF pyridoxine (vitamin B6) [Vitamin B-6] 100 mg tablet 100 mg PO DAILY Qty: 30 0RF memantine [Namenda] 5 mg tablet 5 mg PO BID Qty: 30 0RF risperidone 0.25 mg tablet 0.25 mg PO TID Qty: 45 0RF Continued gabapentin 600 mg tablet 600 mg PO BEDTIME gabapentin 400 mg capsule 400 mg PO BID Rx Instructions: TAKE ONE CAPSULE BY MOUTH TWICE A DAY IN THE MORNING AND AFTERNOON. amlodipine 5 mg tablet 5 mg PO DAILY desvenlafaxine succinate 50 mg tablet extended release 24 hr 50 mg PO DAILY lorazepam 0.5 mg tablet 0.5 mg PO BEDTIME hydrochlorothiazide 25 mg tablet 25 mg PO DAILY Jardiance 25 mg tablet 25 mg PO DAILY potassium chloride 20 mEq tablet,ER particles/crystals 20 meq PO DAILY pyridoxine (vitamin B6) 100 mg tablet 100 mg PO DAILY rosuvastatin 5 mg tablet 5 mg PO DAILY Trulicity 3 mg/0.5 mL pen injector 3 mg SUBCUT QWEEK Rx Instructions: Weekly propranolol 20 mg tablet 20 mg PO TID trazodone 50 mg tablet 50 - 100 mg PO BEDTIME PRN (Reason: sleep) Qty: 60 0RF guanfacine 1 mg tablet extended release 24 hr 1 mg PO QAM Qty: 30 0RF lorazepam 1 mg tablet See Rx Instructions .ROUTE .COMPLEX Qty: 60 0RF Rx Instructions: TAKE 1 TABLET BY MOUTH UPON AWAKENING AND THEN TAKE 1 TABLET BY MOUTH AT 9 A.M. THIS IS A DOSE INCREASE OF 09/14/24, TOTAL DAILY DOSE IS 2. cholecalciferol (vitamin D3) 50 mcg (2,000 unit) tablet 50 mcg PO DAILY Qty: 30 2RF cholecalciferol (vitamin D3) [Vitamin D3] 125 mcg (5,000 unit) tablet 125 mcg PO DAILY Qty: 30 0RF Changed risperidone 0.25 mg tablet 0.125 mg PO BID PRN (Reason: anxiety, agitation) Qty: 20 0RF No Action modafinil 100 mg tablet 100 mg PO QAM Qty: 30 0RF mirtazapine 30 mg tablet 30 mg PO BEDTIME Qty: 30 0RF Stand Alone Forms: Patient Portal Discharge page Print Language: [place]
== END 2025-04-29 23:59 | disposition home or self-care (01) ==
LOC: HO.IOP 09:15
PROVIDERS: Visit Provider Psychiatry & Neurology Psychiatry
DX: F33.2 Major depressive disorder, recurrent severe without psychotic features (principal); F41.1 Generalized anxiety disorder; R41.840 Attention and concentration deficit; R41.89 Other symptoms and signs involving cognitive functions and awareness; Z79.899 Other long term (current) drug therapy
CPT/HCPCS: 90791; H0015; S9480